=== PATIENT | female | born 1975 | race Caucasian/White ===

== ENCOUNTER 2024-12-29 22:35 | Inpatient (IN) | payer OTHER ==
[~2024-12-29] VITALS: Ht 157.5 cm; Wt 83.2 kg
[2024-12-30] VITALS (13 sets, daily range): BP systolic 106–138; BP diastolic 63–86; PULSE 69–84; RESP 16–18; TEMP 97.2–98; O2SAT 96–99
[2024-12-30 00:15] LABS: BASOPHILS % (AUTO) 0.4 % (0.0-2.0); EOSINOPHILS % (AUTO) 0.1 % (1.0-6.0); HEMATOCRIT 40.9 % (36-46); LYMPHOCYTES # (AUTO) 0.6 K/uL (1.0-4.8); LYMPHOCYTES % (AUTO) 5.5 % (22.0-44.0); MEAN CORPUSCULAR HEMOGLOBIN 31.3 pg (26.0-34.0); MEAN CORPUSCULAR HGB CONC 34.2 G/dL (31.0-37.0); MEAN CORPUSCULAR VOLUME 92 fL (80-100); MONOCYTES # (AUTO) 0.2 K/uL (0.1-1.0); MONOCYTES % (AUTO) 1.9 % (2.0-9.0); NEUTROPHILS # (AUTO) 10.3 K/uL (1.8-7.7); PLATELET COUNT (AUTO) 280 K/uL (150-450); RED BLOOD CELL COUNT(AUTO) 4.47 MIL/uL (4.00-5.20); RED CELL DISTRIBUTION WIDTH 12.7 % (11.5-14.5); WHITE BLOOD COUNT (AUTO) 11.2 K/uL (4.5-11.0)
[2024-12-30 00:16] LABS: NEUTROPHILS % (AUTO) 92.1 % (40.0-70.0)
[2024-12-30 00:21] LABS: CALCIUM, TOTAL 9.1 mg/dL (8.8-10.5); CREATININE 1.09 mg/dL (0.60-1.30)
[2024-12-30 00:33] LABS: COVID AG,FIA SOURCE NASAL SWAB
[2024-12-30 00:54] LABS: SARS-COV2 (COVID) ANTIGEN,FIA Negative (Negative)
[2024-12-30] MEDS: PERTUSS(ACELL),DIPH,TET/PF 0.5 ML SYRINGE [ADULT] IM. ONE (00:54)
[2024-12-30] MEDS: BACITRACIN 0.9 GM PACKET OINTMENT TP ONE (00:55)
[2024-12-30] MEDS ORDERED: LORazepam 2 MG TABLET PO PRN (03:30)
[2024-12-30] MEDS ORDERED: HALOPERIDOL 5 MG TABLET PO PRN (03:30)
[2024-12-30] MEDS ORDERED: ZOLPIDEM TARTRATE 10 MG TABLET PO PRN (03:30)
[2024-12-30] MEDS: BACITRACIN 28 GM OINTMENT TP SCH (09:01)
[2024-12-30] MEDS: SERTRALINE HCL 50 MG TABLET PO SCH (10:29)
[2024-12-30] MEDS ORDERED: LOPERAMIDE HCL 2 MG CAPSULE PO PRN (13:00)
[2024-12-30] MEDS ORDERED: ALBUTEROL SULFATE HFA 90 MCG/PUFF 8 GM INHALER IH PRN (13:00)
[2024-12-30] MEDS ORDERED: ONDANSETRON 4 MG TABLET PO PRN (13:00)
[2024-12-30] MEDS ORDERED: IBUPROFEN 400 MG TABLET PO PRN (13:00)
[2024-12-30] MEDS ORDERED: PETROLATUM,WHITE 28 GM JELLY TP PRN (13:00)
[2024-12-30] MEDS ORDERED: NICOTINE 14 MG/24 HOUR PATCH TD PRN (13:00)
[2024-12-30] MEDS ORDERED: DOCUSATE SODIUM 100 MG CAPSULE PO PRN (13:00)
[2024-12-30] MEDS ORDERED: CloNIDine HCL 0.1 MG TABLET PO PRN (13:00)
[2024-12-30] MEDS ORDERED: GuaiFENesin/D-METHORPHAN [SUGAR-FREE] 200-20MG/10 ML SYRUP UDCUP PO PRN (13:00)
[2024-12-30] MEDS ORDERED: MAG HYDROX/ALUMINUM HYD/SIMETH ES 30 ML SUSPENSION UDCUP PO PRN (13:00)
[2024-12-30] MEDS ORDERED: MAGNESIUM HYDROXIDE SUSPENSION 30 ML UDCUP PO PRN (13:00)
[2024-12-30] MEDS: ACETAMINOPHEN 325 MG TABLET PO PRN (19:16)
[2024-12-31 09:14] LABS: HEMOGLOBIN A1C 5.2 % (3.8-5.6)
[2024-12-31 09:27] LABS: CHOL/HDL RATIO 2.7 (3.9-5.7); THYROID STIMULATING HORMONE 1.58 uIU/mL (0.36-3.74)
[2024-12-31 09:57] VITALS: BP 136/95; PULSE 75; RESP 18; TEMP 97.6; O2SAT 97
[2024-12-31 22:41] VITALS: BP 153/85; PULSE 97; RESP 18; TEMP 96.2; O2SAT 97
[2024-12-31 22:54] VITALS: BP 121/74; PULSE 107; RESP 17; TEMP 97.4; O2SAT 95
[2025-01-01 08:24] VITALS: RESP 16
[2025-01-01 08:53] LABS: BASOPHILS % (AUTO) 1.1 % (0.0-2.0); EOSINOPHILS % (AUTO) 2.1 % (1.0-6.0); HEMATOCRIT 41.6 % (36-46); HEMOGLOBIN 13.9 g/dL (12.0-16.0); LYMPHOCYTES # (AUTO) 1.4 K/uL (1.0-4.8); LYMPHOCYTES % (AUTO) 25.7 % (22.0-44.0); MEAN CORPUSCULAR HEMOGLOBIN 30.9 pg (26.0-34.0); MEAN CORPUSCULAR HGB CONC 33.5 G/dL (31.0-37.0); MEAN CORPUSCULAR VOLUME 92 fL (80-100); MONOCYTES # (AUTO) 0.4 K/uL (0.1-1.0); MONOCYTES % (AUTO) 7.8 % (2.0-9.0); NEUTROPHILS # (AUTO) 3.5 K/uL (1.8-7.7); NEUTROPHILS % (AUTO) 63.3 % (40.0-70.0); PLATELET COUNT (AUTO) 281 K/uL (150-450); RED BLOOD CELL COUNT(AUTO) 4.51 MIL/uL (4.00-5.20); RED CELL DISTRIBUTION WIDTH 13.1 % (11.5-14.5); WHITE BLOOD COUNT (AUTO) 5.6 K/uL (4.5-11.0)
[2025-01-01] MEDS ORDERED: SERT-158 PO (12:34)
== END 2025-01-01 15:06 | disposition home or self-care (01) | DRG 885 ==
LOC: EMS 22:40 → B3A 12-30 03:37
PROVIDERS: ADMIT Psychiatry & Neurology Psychiatry; ATTEND Psychiatry & Neurology Psychiatry
PROC: GZHZZZZ Group Psychotherapy (ICD-10-PCS; principal; 2024-12-30)
PROC: GZ52ZZZ Individual Psychotherapy, Cognitive (ICD-10-PCS; 2024-12-30)
DX: F33.2 Major depressive disorder, recurrent severe without psychotic features (principal); R45.851 Suicidal ideations; R73.9 Hyperglycemia, unspecified; D72.829 Elevated white blood cell count, unspecified; Z20.822 Contact with and (suspected) exposure to COVID-19; Z79.899 Other long term (current) drug therapy; G47.00 Insomnia, unspecified; S41.112A Laceration without foreign body of left upper arm, initial encounter; S41.111A Laceration without foreign body of right upper arm, initial encounter; W45.8XXA Other foreign body or object entering through skin, initial encounter; Y93.89 Activity, other specified; Y92.89 Other specified places as the place of occurrence of the external cause; Y99.8 Other external cause status
CPT/HCPCS: 80048; 80061; 83036; 84443; 84703; 85025; 90471; 90715; 99285; G0480